=== PATIENT | male | born 1955 | race Caucasian/White ===

== ENCOUNTER 2019-01-13 21:10 | Inpatient (IN) | payer OTHER ==
[~2019-01-13] VITALS: Ht 182.9 cm; Wt 89.8 kg
[2019-01-13] MEDS ORDERED: ASPIRIN 325 MG TABLET ONE (21:22)
[2019-01-13] MEDS ORDERED: NITROGLYCERIN PACKET 1 GM PACKET ONE (21:22)
--- NOTE | 2019-01-13 21:25 | NUR ---
PT BIBSELF. AAOX4. AMBULATORY. 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 CHEST PAIN 5/10 RADIATING TO LEFT SIDE. PT IS PALE, DIAPHORETIC, AND C/O FEELING DIZZY. PLACED ON DIE TURNER AND PULSE OX. MD AT BEDSIDE FOR EVAL. O2 92% ON ROOM AIR. PLACED ON 2L.
--- NOTE | 2019-01-13 21:25 | NUR ---
PT IS RADHA ON THE MONITOR @ 44. IS AWARE.
--- NOTE | 2019-01-13 21:28 | NUR ---
DOPAMINE HELD PER DR. LESTER. PT'S HR IS NOW IN THE MID TO HIGH 50'S. PT'S PALOR IS NOW WNL. PT IS ON 3L O2 VIA NC AND IS SATURATING AT 94%. RESP ARE EVEN AND UNLABORED. WILL CONTINUE TO MONITOR THE PT.
[2019-01-13] MEDS ORDERED: NITROGLYCERIN PACKET 1 GM PACKET TD ONE (21:30)
[2019-01-13] MEDS ORDERED: ASPIRIN 325 MG TABLET PO ONE (21:30)
[2019-01-13] MEDS ORDERED: DOPamine 400 MG in IV D5W 250 ML IV ONE (21:30)
--- NOTE | 2019-01-13 21:30 | NUR ---
CXR IN PROGRESS AT THE BEDSIDE.
[2019-01-13 21:32] LABS: BASOPHILS # (AUTO) 0.1 /CMM (0.0-0.2); BASOPHILS % (AUTO) 0.8 % (0.0-2.0); EOSINOPHILS % (AUTO) 3.8 % (0.0-6.0); HEMATOCRIT 44 % (39-51); HEMOGLOBIN 14.7 g/dL (13.5-17.5); LYMPHOCYTES # (AUTO) 2.4 /CMM (0.8-4.8); LYMPHOCYTES % (AUTO) 31.8 % (20.0-44.0); MEAN CORPUSCULAR HGB CONC 34 g/dl (31.0-36.0); MEAN CORPUSCULAR VOLUME 93 fL (80-96); MONOCYTES # (AUTO) 0.8 /CMM (0.1-1.30); MONOCYTES % (AUTO) 9.9 % (2.0-12.0); NEUTROPHILS # (AUTO) 4.1 /CMM (1.8-8.9); NEUTROPHILS % (AUTO) 53.7 % (43.0-81.0); PLATELET COUNT (AUTO) 261 /CMM (150-450); WHITE BLOOD COUNT (AUTO) 7.7 K/uL (4.3-11.0)
--- NOTE | 2019-01-13 21:40 | NUR ---
O2 REDUCED TO 2L NC
--- NOTE | 2019-01-13 21:52 | NUR ---
Patient is resting comfortably in bed. Easily aroused. VSS.
[2019-01-13 21:53] LABS: ALBUMIN 3.6 g/dL (3.4-5.0); BILIRUBIN,DIRECT 0.1 mg/dL (0.0-0.2); BILIRUBIN,TOTAL 0.6 mg/dL (0.2-1.0); CALCIUM, SERUM 9.2 mg/dL (8.5-10.1); CREATININE 1.1 mg/dL (0.6-1.3); POTASSIUM 3.4 mmol/L (3.5-5.1); TOTAL PROTEIN, SERUM 7.4 g/dL (6.4-8.2)
--- NOTE | 2019-01-13 22:05 | NUR ---
DR LESTER IS AT THE BEDSIDE SPEAKING TO THE PT RE: PLAN OF CARE.
[2019-01-13] MEDS ORDERED: LOSA1TAB39 PO (22:09)
[2019-01-13] MEDS ORDERED: ALBU8.5H8 INH (22:09)
[2019-01-13] MEDS ORDERED: ONDANSETRON HCL/PF 4 MG/2 ML VIAL ONE (22:14)
[2019-01-13] MEDS ORDERED: MORPHINE SULFATE INJ 4 MG/ML DISP.SYRIN ONE (22:14)
[2019-01-13] MEDS ORDERED: ONDANSETRON HCL/PF - ER 4 MG/2 ML VIAL IV ONE (22:30)
[2019-01-13] MEDS ORDERED: MORPHINE SULFATE INJ 10 MG/ML DISP.SYRIN IV ONE (22:30)
[2019-01-13] MEDS ORDERED: IV NS 0.9% 1,000 ML BAG IV ONE (22:30)
--- NOTE | 2019-01-13 23:10 | NUR ---
Patient is resting comfortably in bed. Easily aroused. VSS. AT BEDSIDE.
--- NOTE | 2019-01-13 23:47 | NUR ---
Automatic Furnace Operator at bedside for blood collection.
[2019-01-14] VITALS (34 sets, daily range): BP systolic 89–151; BP diastolic 45–137
--- NOTE | 2019-01-14 00:17 | NUR ---
Roz schaffer in [facility] - 01/14/19 at 0019 by [facility] CONSULT WITH DR HENRIQUEZ.
--- NOTE | 2019-01-14 00:19 | NUR ---
CARDIOLOGY CONSULT WITH DR CLARK.
--- NOTE | 2019-01-14 00:54 | NUR ---
Patient is resting comfortably in bed. Easily aroused. VSS. Speaking to his .
[2019-01-14] MEDS ORDERED: MORPHINE SULFATE INJ 2 MG/ML DISP.SYRIN IV PRN (01:00)
[2019-01-14] MEDS ORDERED: IV D5/0.45 NACL 1,000 ML IV ONE (01:00)
[2019-01-14] MEDS ORDERED: ONDANSETRON HCL/PF 4 MG/2 ML VIAL IVP PRN (01:00)
[2019-01-14] MEDS ORDERED: ALBUTEROL FS 2.5 MG/3 ML VIAL.NEB NEB PRN (01:00)
--- NOTE | 2019-01-14 01:59 | NUR ---
Report given to José Miguel REES for JED.
--- NOTE | 2019-01-14 02:06 | NUR ---
PT TRANSPORTED TO ICU BED 258 FOR JED. TRANSPORTED PER ACLS PROTOCOL.
--- NOTE | 2019-01-14 02:30 | NUR ---
ACTIVITY SPECIALIST - ADMISSION NOTES - PT RECEIVED FROM ER FOR ACUTE CORONARY SYNDROME, PT SAYS HIS CHEST PAIN IS 2/10 NOT THAT BAD RIGHT NOW HE JUST FEELS A BIT OF PRESSURE. PT IS AWAKE ALERT ORIENTED X4. PT PLACED ON 2L NC. BP WNL.PT USES URINAL, CLEAR YELLOW ADEQUATE AMOUNT OF URINE. SKIN INTACT, PT AMBULATORY. WILL CONTINUE TO MONITOR
[2019-01-14] MEDS ORDERED: POTASSIUM CHLORIDE 20 MEQ TAB.PRT.SR PO ONE (03:00)
[2019-01-14 04:21] LABS: BASOPHILS % (AUTO) 0.5 % (0.0-2.0); EOSINOPHILS % (AUTO) 0.2 % (0.0-6.0); HEMATOCRIT 40 % (39-51); HEMOGLOBIN 13.6 g/dL (13.5-17.5); LYMPHOCYTES # (AUTO) 1.1 /CMM (0.8-4.8); LYMPHOCYTES % (AUTO) 13.1 % (20.0-44.0); MEAN CORPUSCULAR HGB CONC 34 g/dl (31.0-36.0); MEAN CORPUSCULAR VOLUME 94 fL (80-96); MONOCYTES # (AUTO) 0.4 /CMM (0.1-1.30); MONOCYTES % (AUTO) 4.6 % (2.0-12.0); NEUTROPHILS # (AUTO) 6.7 /CMM (1.8-8.9); NEUTROPHILS % (AUTO) 81.6 % (43.0-81.0); PLATELET COUNT (AUTO) 240 /CMM (150-450); RED BLOOD CELL COUNT(AUTO) 4.24 MIL/uL (4.5-6.0); WHITE BLOOD COUNT (AUTO) 8.2 K/uL (4.3-11.0)
[2019-01-14 04:30] LABS: CALCIUM, SERUM 9.3 mg/dL (8.5-10.1); CREATININE 0.8 mg/dL (0.6-1.3); POTASSIUM 3.7 mmol/L (3.5-5.1)
[2019-01-14 04:35] LABS: ALBUMIN 3.3 g/dL (3.4-5.0); BILIRUBIN,TOTAL 0.9 mg/dL (0.2-1.0); MAGNESIUM 1.9 mg/dL (1.8-2.4); PHOSPHORUS 3.7 mg/dL (2.5-4.9); TOTAL PROTEIN, SERUM 6.7 g/dL (6.4-8.2)
--- NOTE | 2019-01-14 04:56 | NUR ---
CRITICAL TROPONIN 1.281, [facility] VP LAB AMANDA CALDWELL NOTIFIED, CARDIOLOGY CONSULT ORDERED, NO NEW ORDERS WILL CONTINUE TO MONITOR CLOSELY
[2019-01-14 05:16] LABS: THYROID STIMULATING HORMONE 0.619 uIU/mL (0.358-3.74)
[2019-01-14] MEDS ORDERED: HEPARIN SODIUM,PORCINE/PF 50 UNIT/5 ML DISP.SYRIN IV ONE (07:00)
[2019-01-14] MEDS ORDERED: HEPARIN SODIUM, PORCINE 1000 UNIT/1 ML VIAL IV ONE (07:00)
--- NOTE | 2019-01-14 07:01 | NUR ---
DR CLARK AT BEDSIDE TO UPDATE PT ON PLAN OF CARE
--- NOTE | 2019-01-14 07:27 | NUR ---
RELEASE SPECIALIST NOTE DR. CLARK AT NURSES STATION WITH VERBAL ORDER FOR PROCEDURE CONSENT OF LEFT HEART CATHERIZATION/ANGIOGRAM WITH POSSIBLE INTERVENTION, POSSIBLE ANGIOPLASTY, POSSIBLE STENT PLACEMENT WITH CONSCIOUS SEDATION BY DR. SEYMOUR AROUND 09. NOTED AND CARRIED OUT. WILL CONTINUE TO MONITOR.
--- NOTE | 2019-01-14 07:30 | NUR ---
PIPE BOWLS PAINT TRIMMER INITIAL NOTE RECEIVED PATIENT AWAKE A/OX4, ABLE TO MAKE NEEDS KNOWN. STATES HE HAS PRESSURE LIKE PAIN, NON-RADIATING 1-2. DENIES SOB, ON 2LPMO2 VIA NC. ON TELE MONITOR SR WITH OCC PVCS. STATES HE'S AWARE OF PROCEDURE TODAY. SIDE RAILS UP AND LOCKED. BED KEPT AT LOWEST POSITION. CALL LIGHT KEPT WITHIN EASY REACH. WILL CONTINUE TO MONITOR.
[2019-01-14] MEDS: LOSARTAN/HCTZ 50-12.5MG/ 1 EA TABLET PO SCH (08:23)
[2019-01-14] MEDS: ASPIRIN EC 81 MG TABLET.DR PO SCH (08:23)
--- NOTE | 2019-01-14 08:29 | NUR ---
senior agricultural assistant note at beside and laborer tan house nurse, procedure explained. verbalized understanding. consent obtained.
[2019-01-14] MEDS ORDERED: IV SET PRIMARY PUMP SET 1 EA INFUS.SET MC ONE (08:35)
[2019-01-14] MEDS ORDERED: IODIXANOL 150 ML IV ONE ×2 (08:35→10:30)
[2019-01-14] MEDS ORDERED: LIDOCAINE HCL/PF 1% 30 ML SDV ONE (08:38)
[2019-01-14] MEDS ORDERED: VERAPAMIL HCL IV 5 MG/2 ML VIAL ONE (08:39)
[2019-01-14] MEDS ORDERED: NITROGLYCERIN ICAR 1,000 MCG/10 ML VIAL ICAR ONE (08:39)
[2019-01-14] MEDS ORDERED: FENTANYL PF 100MCG/2ML AMPUL ONE (08:41)
[2019-01-14] MEDS ORDERED: MIDAZOLAM HCL 2 MG/2ML VIAL ONE (08:41)
[2019-01-14] MEDS ORDERED: HEPARIN SODIUM, PORCINE 1,000 UNIT/ML VIAL ONE (09:51)
[2019-01-14] MEDS ORDERED: ASPIRIN 325 MG TABLET ONE (10:11)
[2019-01-14] MEDS ORDERED: TICAGRELOR 90 MG TABLET PO ONE (10:11)
[2019-01-14] MEDS ORDERED: IODIXANOL 320MG/ML 100 ML IV ONE (10:11)
[2019-01-14] MEDS ORDERED: IV NS 0.9% 1,000 ML ONE (10:34)
--- NOTE | 2019-01-14 11:44 | NUR ---
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 DENIES SOB. DENIES N/V. AT BEDSIDE. TEACHING PROVIDED. EDUCATED REGARDING TR BAND. NO BLEEDING NOTED AT THIS TIME. PULSES PRESENT. SR ON TELE MONITOR. POST CARDIAC CATHETERIZATION ORDERS NOTED AND CARRIED OUT. WILL CONTINUE TO MONITOR.
[2019-01-14] MEDS ORDERED: IV NS 0.9% 500 ML BAG IV ONE (12:00)
[2019-01-14] MEDS ORDERED: IV NS 0.9% 500 ML IV ONE (12:30)
--- NOTE | 2019-01-14 13:30 | NUR ---
TR BALLOON 1330- 3ML REMOVED, NO BLEEDING NOTED, PULSE PALPABLE, ABLE TO MOVE FINGERS. DENIES CHEST PAIN. WILL CONTINUE TO MONITOR. 1345-3ML REMOVED, NO MORE AIR IN BALLOON, NO BLEEDING NOTED, PULSE PALPABLE, ABLE TO MOVE EXTREMITIES, DENIES CHEST PAIN. WILL CONTINUE TO MONITOR.
--- NOTE | 2019-01-14 14:45 | NUR ---
icu staff nurse note patient ambulated to restroom with no complication, denies chest pain, denies sob. will continue to monitor.
--- NOTE | 2019-01-14 15:00 | NUR ---
CHILD SUPPORT OFFICER NOTE NO BLEEDING NOTED AT ACCESS SITE. TR REMOVED. CARPENTER ASSISTANT INSTALLER NURSE CAME BY AND CHECKED ON PATIENT. NO HEMATOMA NOTED. PULSES PALPABLE. PATIENT DENIES CP AND SOB. AT BEDSIDE. WILL CONTINUE TO MONITOR.
[2019-01-14] MEDS: TICAGRELOR 90 MG TABLET PO SCH (16:25)
--- NOTE | 2019-01-14 18:36 | NUR ---
INFORMATION SECURITY SYSTEMS INSTRUCTOR CLOSING NOTE ALL NEEDS ANTICIPATED AND MET. SKIN WARM AND DRY TO TOUCH. NO BLEEDING NOTED AT RIGHT RADIAL ARTERY ACCESS SITE S/P TR BAND. PATIENT DENIES CHEST PAIN, DENIES SOB ON 2LPMO2 VIA NC. SINUS RADHA ON MONITOR, ASYMPTOMATIC. NO COMPLICATIONS NOTED. ALL DUE MEDS GIVEN. SIDE RAILS UP AND LOCKED. BED KEPT AT LOWEST POSITION. CALL LIGHT KEPT WITHIN EASY REACH. WILL ENDORSE CONTINUITY OF CARE TO PM NURSE.
--- NOTE | 2019-01-14 19:00 | NUR ---
RECEIVED PATIENT AWAKE,ALERT,STABLE,NO CHEST PAIN.S/P PCI .NOT IN NAY DISTRESS.RIGHT WRIST (post TR Band site) with no bleeding ,no hematoma ,+ pulse.Will closely monitor for any bleeding.Comfort care done,needs attended. 2000 Family at bedside.
[2019-01-14] MEDS ORDERED: ATORVASTATIN 40 MG TABLET PO SCH (22:00)
--- NOTE | 2019-01-14 22:00 | NUR ---
REMAINS STABLE,FAMILY AT BEDSIDE.NO BLEEDING ,NO CHEST PAIN.
[2019-01-15] VITALS (14 sets, daily range): BP systolic 90–131; BP diastolic 53–96
--- NOTE | 2019-01-15 | NUR ---
STABLE,ASLEEP.NO EPISODE OF ANY CHEST PAIN. NO BLEEDING NOTED ON THE RIGHT WRIST.NOT IN NAY DISTRESS.
--- NOTE | 2019-01-15 02:00 | NUR ---
Stable,asleep.no chest pain. 0400 Awake,alert,stable.
--- NOTE | 2019-01-15 04:00 | NUR ---
Stable all night,no chest pain,no bleeding,no hematoma from the cath.site(right wrist).No sob. 0740 Report given to Virgie REES.
[2019-01-15 04:23] LABS: BASOPHILS % (AUTO) 0.6 % (0.0-2.0); EOSINOPHILS % (AUTO) 1.3 % (0.0-6.0); HEMATOCRIT 45 % (39-51); HEMOGLOBIN 15.1 g/dL (13.5-17.5); LYMPHOCYTES # (AUTO) 1.6 /CMM (0.8-4.8); LYMPHOCYTES % (AUTO) 21.8 % (20.0-44.0); MEAN CORPUSCULAR HGB CONC 34 g/dl (31.0-36.0); MEAN CORPUSCULAR VOLUME 95 fL (80-96); MONOCYTES # (AUTO) 0.9 /CMM (0.1-1.30); MONOCYTES % (AUTO) 11.7 % (2.0-12.0); NEUTROPHILS # (AUTO) 4.8 /CMM (1.8-8.9); NEUTROPHILS % (AUTO) 64.6 % (43.0-81.0); PLATELET COUNT (AUTO) 253 /CMM (150-450); RED BLOOD CELL COUNT(AUTO) 4.73 MIL/uL (4.5-6.0); WHITE BLOOD COUNT (AUTO) 7.4 K/uL (4.3-11.0)
[2019-01-15 04:31] LABS: CALCIUM, SERUM 9.4 mg/dL (8.5-10.1); POTASSIUM 3.8 mmol/L (3.5-5.1)
--- NOTE | 2019-01-15 08:00 | NUR ---
CAD TECHNICIAN INITIAL NOTE RECEIVED PATIENT AWAKE, A/OX4, ABLE TO MAKE NEEDS KNOWN. SKIN WARM AND DRY TO TOUCH. DENIES CHEST PAIN, DENIES SOB. ON TELE MONITOR SR. SIDE RAILS UP AND LOCKED. BED KEPT AT LOWEST POSITION. CALL LIGHT KEPT WITHIN EASY REACH. WILL CONTINUE TO MONITOR.
[2019-01-15] MEDS: TICAGRELOR 90 MG TABLET PO SCH (08:14)
[2019-01-15] MEDS: ASPIRIN EC 81 MG TABLET.DR PO SCH (08:14)
[2019-01-15] MEDS: LOSARTAN/HCTZ 50-12.5MG/ 1 EA TABLET PO SCH (08:15)
--- NOTE | 2019-01-15 08:15 | NUR ---
MACHINE ADJUSTER NOTE SEEN AND EXAMINED BY DR. CLARK
[2019-01-15] MEDS ORDERED: ATOR40TA PO (10:38)
[2019-01-15] MEDS ORDERED: TICA90TA PO (10:38)
--- NOTE | 2019-01-15 12:15 | NUR ---
MEDICAL BILLING REPRESENTATIVESOLARIS ADMINISTRATOR NOTE PATIENT IN STABLE CONDITION. NO C/O PAIN OR DISCOMFORT. DENIES SOB. DISCHARGE INSTRUCTIONS AND TEACHING GIVEN, CD GIVEN, STENT INFORMATION CARD GIVEN, TR INSTRUCTIONS GIVEN. ALL BELONGINGS TAKEN BY PATIENT. ASSISTED PATIENT TO PRIVATE CARE WITH AND DAUGHTER VIA WHEELCHAIR. IV LINES REMOVED AND INTACT. Addendum: 01/15/19 at 1349 by PEARL MUÑOZ RN patient discharged at 1235. prescription medication brilinta on hand.
== END 2019-01-15 13:10 | disposition home or self-care (01) | DRG 247 ==
LOC: ER 21:13 → ICU 01-14 01:57
PROVIDERS: ADMIT Nurse Practitioner Acute Care; ATTEND Nurse Practitioner Acute Care
PROC: 027034Z Dilation of Coronary Artery, One Artery with Drug-eluting Intraluminal Device, Percutaneous Approach (ICD-10-PCS; principal; 2019-01-14)
PROC: B211YZZ Fluoroscopy of Multiple Coronary Arteries using Other Contrast (ICD-10-PCS; principal; 2019-01-14)
PROC: 4A023N7 Measurement of Cardiac Sampling and Pressure, Left Heart, Percutaneous Approach (ICD-10-PCS; principal; 2019-01-14)
DX: I21.4 Non-ST elevation (NSTEMI) myocardial infarction (principal); E87.1 Hypo-osmolality and hyponatremia; J98.11 Atelectasis; I25.10 Atherosclerotic heart disease of native coronary artery without angina pectoris; Z79.51 Long term (current) use of inhaled steroids; I10 Essential (primary) hypertension; Z98.61 Coronary angioplasty status; Z79.899 Other long term (current) drug therapy; Z79.82 Long term (current) use of aspirin; J45.909 Unspecified asthma, uncomplicated; I70.0 Atherosclerosis of aorta; E78.5 Hyperlipidemia, unspecified; Z72.0 Tobacco use
CPT/HCPCS: 36415; 71045-TC; 80048-TC; 80053-TC; 80061-TC; 80076-TC; 83735-TC; 84100-TC; 84443-TC; 84484-TC; 85025-TC; 85610-TC; 87081-TC; 92928; 92982; 93307-TC; 93452; C1725; C1769; C1887; G0378; J1265; J1642; J1644; J2250; J2270; J2405; J3010; J3490; J7030; J7040; J7060; Q9967

== ENCOUNTER 2019-01-19 15:52 | Outpatient (CLI) | payer OTHER ==
[~2019-01-19 15:52] MED LIST: ALBU8.5H8 INH; ATOR40TA PO; LOSA1TAB39 PO; TICA90TA PO
[2019-01-19 16:07] VITALS: BP 127/84
== END 2019-01-19 23:59 | disposition home or self-care (01) ==
LOC: MSC 15:52
PROVIDERS: ATTEND Internal Medicine
DX: I21.4 Non-ST elevation (NSTEMI) myocardial infarction (principal); I25.119 Atherosclerotic heart disease of native coronary artery with unspecified angina pectoris; Z95.5 Presence of coronary angioplasty implant and graft; I10 Essential (primary) hypertension; J45.909 Unspecified asthma, uncomplicated; Z72.0 Tobacco use; E78.5 Hyperlipidemia, unspecified